=== PATIENT | male | born 1985 | race Caucasian/White ===

== ENCOUNTER → 2024-07-29 11:53 | Outpatient (BNVA) | payer OTHER, SELFPAY | PROVIDERS: Family Provider Nurse Practitioner Family; PCP Nurse Practitioner Adult Health; Visit Provider Surgery | DX: K80.50 Calculus of bile duct without cholangitis or cholecystitis without obstruction (principal) | CPT/HCPCS: 36415; 80048; 80076; 85025 ==

== ENCOUNTER 2024-08-13 06:51 | Outpatient (CLI) | payer OTHER, SELFPAY ==
--- NOTE | 2024-08-13 07:15 | US_ITS ---
WS: [id number] RIGHT UPPER QUADRANT ULTRASOUND HISTORY: gallbladder problem COMPARISON: None available. Liver: 16.5 cm in length. Normal size liver and echogenicity. No bile duct dilatation or mass. Portal Vein: Normal hepatopetal flow with monophasic waveform. Gallbladder: Normally distended gallbladder with stones. Several large stones are identified within the gallbladder. Largest stone measures 1.6 cm. CBD: 0.3 cm Pancreas: Poorly visualized due to bowel gas. Right kidney: 11.7 cm in length. Normal size and echogenicity. No hydronephrosis or mass. Aorta and IVC: Unremarkable abdominal aorta and IVC. No ascites. US/US gall bladder [id number] IMPRESSION: 1. Cholelithiasis without evidence for acute cholecystitis. 2. No hepatobiliary dilatation.
== END 2024-08-13 06:52 | disposition home or self-care (01) ==
PROVIDERS: Family Provider Nurse Practitioner Family; PCP Nurse Practitioner Adult Health; Visit Provider Surgery
DX: K80.20 Calculus of gallbladder without cholecystitis without obstruction (principal)
CPT/HCPCS: 76705

== ENCOUNTER → 2024-08-19 14:48 | Outpatient (BNVA) | payer OTHER, SELFPAY | PROVIDERS: Family Provider Nurse Practitioner Family; PCP Nurse Practitioner Adult Health; Visit Provider Surgery | DX: R10.9 Unspecified abdominal pain (principal) | CPT/HCPCS: 36415; 86003; 86008 ==

== ENCOUNTER 2024-09-01 08:01 | Day surgery (SDC) | payer OTHER, SELFPAY ==
[2024-09-01] VITALS (9 sets, daily range): BP systolic 94–128; BP diastolic 61–90; PULSE 76–90; RESP 14–25; TEMP 36.2–36.6; O2SAT 94–100; BMI 37.7
[2024-09-01] MEDS: sodium chloride 0.9% 1,000 ML 30 ML IV (08:36)
--- NOTE | 2024-09-01 08:55 | ANES.PREANE2 ---
Pre-Anesthetic Assessment Height/Weight: Height 6 ft Weight 278 lb Temp Pulse Resp BP Pulse Ox O2 Del Method 97.2 F L 79 18 128/90 97 Room Air 09/01/24 08:24 09/01/24 08:24 09/01/24 08:24 09/01/24 08:24 09/01/24 08:24 09/01/24 08:24 Preop Diagnosis: Chronic cholecystitis Operation Date: 09/01/24 13:00 Proposed Procedures p Laparoscopic Cholecystectomy POSSIBLE OPEN(Not Applicable) - Kendell Magallon MD Was Beta Olimpia taken within 24 hours: N/A Was Clonidine taken within 24 hours: N/A Last intake: Intake Last Liquid Date 08/31/24 Last Liquid Time 23:00 Last Solid Date 08/31/24 Last Solid Time 19:00 Social No alcohol and No tobacco Exam alert, oriented x 3, clear to auscultation bilaterally and regular rate & rhythm Airway Submandibular: within normal limits Cervical ROM: within normal limits Mallampati: Class III Dentition: full Anesthetic Plan ASA status: 2 Anesthesia: General Other: No prior issues with anesthesia NPO since yesterday evening Patient reports that his grandfather had issues with succinylcholine when under anesthesia, upon further questioning he appears to have received paralytic without sedation and was also very slow to wake up from anesthesia at which they attributed to prolonged paralytic. Unaware of pseudocholinesterase deficiency Patient denies any cardiac or pulmonary issues METs greater than 4 Plan for GETA Medications/Allergies Home Medications ?Medication ?Instructions ?Recorded ?Confirmed ?Last Taken ?Type No Known Home Medications 07/29/24 09/01/24 Unknown History Allergies Allergy/AdvReac Type Severity Reaction Status Date / Time No Known Allergies Allergy Verified 09/01/24 08:19 Current Medications Generic Name Dose Route Start Last Admin Trade Name Freq PRN Reason Stop Dose Admin Sodium Chloride 1,000 mls @ 30 mls/hr 09/01/24 08:30 09/01/24 08:36 Sodium Chloride 0.9% IV 09/02/24 08:29 30 mls/hr .Q24H SOSA Administration PFSH Anesthesia Social History Smoking and tobacco/nicotine status: never used tobacco/nicotine
--- NOTE | 2024-09-01 08:58 | W.PM.OPSUD ---
Surgery/Procedure H&P Update DATE OF PROCEDURE: September 01, 2024 DATE H&P PERFORMED: 08/19/24 H&P UPDATE INFORMATION: I have reviewed H&P completed within last 30 days, I have examined patient prior to procedure, No changes to prior documentation, Changes to prior documentation as noted here and Risks and benefits of the procedure reviewed PREOP DIAGNOSIS: Chronic cholecystitis PLANNED PROCEDURE: Operation Date: 09/01/24 13:00 Proposed Procedures p Laparoscopic Cholecystectomy POSSIBLE OPEN(Not Applicable) - Kendell Magallon MD
[2024-09-01] MEDS: ceFAZolin 3,000 MG in sodium chloride 0.9% (plus) 100 ML 200 MG IV (09:14)
[2024-09-01] MEDS: lidocaine-epi 1% 20 mL INJ 10 ML INJECTION (10:42)
[2024-09-01] MEDS: BUPivacaine 0.25% INJ 10 mL INJECTION (10:42)
--- NOTE | 2024-09-01 10:47 | PM.OP ---
Operative Report Date of procedure: September 01, 2024 Pre-op diagnosis: Symptomatic cholelithiasis Post-op diagnosis: Symptomatic cholelithiasis Post-op findings: Gallbladder appeared thickened and contracted, there was significant fat infiltration of the wall of the gallbladder, the cystic artery was anterior to the cystic duct. Procedure done: Laparoscopic cholecystectomy Specimens removed/disposition: Gallbladder Surgeon: Kendell Magallon MD Building Maintenance Mechanic: ROGER OR STaff Estimated blood loss: 5 Complications: none apparent Brief History: Is a 39-year-old male who presents to my office with abdominal pain after workup we determined his pain is likely due to symptomatic lithiasis, after discussion of all risk benefits documented in my preop note to proceed to the OR for laparoscopic cholecystectomy. Procedure: Patient was brought into the OR, he was placed in a supine position. General anesthesia was given. The abdomen was prepped and draped in the usual sterile fashion. A timeout was conducted. I accessed the abdomen via a 5 mm Optiview port in the left upper quadrant. Initial pneumoperitoneum was obtained and no evidence of visceral injury during entry was noted. At 12 mm trocar was placed in the supraumbilical position under direct visualization. Additional 5 mm trocars were placed in the epigastrium right upper quadrant and right flank under direct visualization. The gallbladder was grasped from the fundus and retracted cephalad, gallbladder noted to be partially intrahepatic and slightly contracted I then grasped the infundibulum and retracted in the inferolateral direction exposing the hepatocystic triangle. The peritoneum anterior to the hepatocystic triangle was opened with electrocautery, I carried this opening in the medial and lateral direction to the edges of the liver and then on the sides of the gallbladder to allow for better exposure. With careful blunt dissection as well as electrocautery I was able to encircle the cystic duct and artery, I also elevated lower third of the gallbladder from the liver bed, thus creating a critical view of safety. The cystic artery was anterior to the cystic duct. The cystic duct and artery were double clipped proximally and single clipped distally and transected. The gallbladder was removed from the liver bed using electrocautery. The gallbladder was retrieved in an Endo Catch bag via the umbilical trocar site. The liver bed and clips were inspected the area was hemostatic, there was no evidence of bile leak the clips appeared to be in good position. The liver bed was irrigated and suctioned. The umbilical trocar was removed and umbilical trocar site was closed with a 0 Vicryl Randy-Zen suture passer under direct visualization. The epigastrium right upper quadrant right flank trocars were removed under direct visualization, the left upper quadrant trocar was used to evacuate the pneumoperitoneum and subsequently removed. Local anesthesia was infiltrated. Hemostasis was achieved from the trocar sites. The wounds were closed in layers using #3-0 Vicryl for the subcutaneous tissue #4 Monocryl for the skin. At the end of the procedure all counts were correct, the patient tolerated well the procedure was transferred to the PACU in stable condition.
[2024-09-01] MEDS: oxyCODONE 5 mg IR Tab/Cap PO (11:52)
--- NOTE | 2024-09-01 12:07 | ANE.PACU2 ---
Inpatient post-anesthesia follow up: Airway intact: Yes Vital signs: Temperature 97.6 F Pulse Rate 88 Respiratory Rate 18 Blood Pressure 128/88 Pulse Oximetry 94 Oxygen Delivery Me thod Room Air Oxygen Flow Rate Fraction of Inspir ed Oxygen Hydration adequate: Yes Nausea and vomiting: No Pain level: 2 Mental status: Baseline
== END 2024-09-01 12:07 | disposition home or self-care (01) ==
PROVIDERS: PCP Nurse Practitioner Adult Health; Visit Provider Surgery
PROC: 0FT44ZZ Resection of Gallbladder, Percutaneous Endoscopic Approach (ICD-10-PCS; CPT 47562; principal; 2024-09-01 12:50)
DX: K80.10 Calculus of gallbladder with chronic cholecystitis without obstruction (principal); L92.8 Other granulomatous disorders of the skin and subcutaneous tissue
CPT/HCPCS: 47562; 88304; A4216; J0690; J1100; J1885; J2250; J2405; J2704; J3010; J3490; J7030; J9999